=== PATIENT | male | born 1960 | race Caucasian/White ===

== ENCOUNTER 2023-07-19 12:09 | Emergency (ER) | payer MEDICARE, SELFPAY ==
[2023-07-19 12:26] VITALS: BP 126/75
[2023-07-19 13:11] LABS: % Basophils 0.7 % (0-2); % Eosinophils 1.9 % (0-6); % Immature Granulocytes 0.2 % (0-0.5); % Lymphocytes 15.3 % (20.5-51.1); % Monocytes 10.9 % (1.7-9.3); Absolute Eosinophils 0.1 10^3/uL (0-0.7); Absolute Lymphocytes 0.9 10^3/uL (1.2-3.4); Absolute Monocytes 0.6 10^3/uL (0.1-0.6); Absolute Neutrophils 4.1 10^3/uL (1.4-6.5); Hematocrit 42.8 % (39.0-52.0); Hemoglobin 14.7 g/dL (13.0-18.0); Mean Corp Hgb Conc. 34.3 g/dL (33.0-37.0); Mean Corpuscular Hgb 29.4 pg (27.0-31.0); Mean Corpuscular Volume 85.6 fL (80.0-94.0); Nucleated Red Blood Cells % 0 % (-); Red Cell Dist. Width 16.1 % (11.5-14.5); White Blood Cell Count 5.8 10^3/uL (4.8-10.8)
[2023-07-19 13:20] LABS: ALT (SGPT) 31 U/L (0-50); AST (SGOT) 41 U/L (17-59); Albumin 3.8 g/dl (3.5-5.0); Alkaline Phosphatase 101 U/L (38-126); Blood Urea Nitrogen 18 mg/dl (9-20); Calcium 9.8 mg/dl (8.4-10.2); Carbon Dioxide 24 mmol/L (22-30); Chloride 104 mmol/L (98-107); Glucose 121 mg/dl (70-99); Potassium 4.6 mmol/L (3.5-5.1); Sodium 133 mmol/L (135-145); Total Bilirubin 1.2 mg/dl (0.2-1.3); Total Protein 6.7 g/dl (6.3-8.2); eGFR > 60.00
[2023-07-19 13:32] LABS: Troponin I < 0.012 ng/ml
[2023-07-19 13:41] LABS: Mean Platelet Volume 11.7 fL (7.4-10.4); Platelet Count 124 10^3/uL (130-400)
--- NOTE | 2023-07-19 15:25 | ED.GENMED ---
History of Present Illness
General
Chief Complaint: Chest Pain
Source: patient
Exam Limitations: none
Time Seen by Provider: 07/19/23 14:21
Nursing documentation reviewed up to this point in time: agreed with
Travel History
Have you had any contact with someone who has COVID-19?: No
Do you have any symptoms of coronavirus? Fever > 100 degrees, chills, cough, shortness of breath, sore throat, loss of taste or smell, muscle aches, or headache?: No
History of Present Illness
History of Present Illness:
63-year-old male with past medical history of hypertension hyperlipidemia, NIDDM, hypothyroidism presenting to the emergency department today with concerns of chest pain after workout 2 days ago seem to improve and then had similar symptoms today
after walking the dog. Describes as a slight tightness and shortness of breath that does improve with rest. Claims that he has had upper respiratory syndrome over the past few months and was treated for pneumonia 2 weeks ago with amoxicillin with
some slight improvement after taking that. No fevers recently denies nausea vomiting. No diaphoresis. No history of blood clots no recent trauma surgery immobilization, history of blood clots or leg swelling
Review of Systems
Review of Systems
Allergies reviewed?: Yes
All Other Systems: ROS reviewed and negative except as documented in HPI and ROS
Phy Exam
Physical Exam
Physical Exam:
GENERAL: Alert , in no apparent distress
EYE: pupils equal and reactive
NECK: Supple, no significant adenopathy.
ENT: o/p clr, mmm.
CARDIAC: Regular rate and rhythm .
LUNGS: Crackles to the right lower lung clear breath sounds bilaterally, no acute respiratory distress, no wheezes
ABDOMEN: Soft, without focal tenderness, no r/g, no cvat
NEUROLOGICAL: Alert and oriented, no focal neuro deficits
SKIN: Warm and dry, skin intact.
MUSCULOSKELETAL: No edema, well perfused.
PSYCH: Normal and appropriate interaction.
Scores
Heart Score for Chest Pain Patients
STEMI patient?: No
History: Slightly or Non-Suspicious
ECG: Normal
Age: >/= 65 years
Risk Factors: 1 or 2 Risk Factors
Troponin: </= Normal Limit
Heart Score for Chest Pain Patients: 3
Heart Score Risk: 2.5% MACE over next 6 weeks
Course
Orders/Labs/Results
Orders:
Orders
07/19/23 12:11
Electrocardiogram (*1) Urgent
Reason for Study: Chest Pain
EKG- Treatment ONCE
07/19/23 12:39
Complete Blood Count/With Diff Urgent
Comprehensive Metabolic Panel Urgent
Troponin I Urgent
07/19/23 14:26
Chest [CR Chest - 2 Views ] Urgent
Comment:
Reason For Exam: cp
07/19/23 17:04
Doxycycline [Vibramycin] 100 mg PO NOW STA
07/19/23 17:05
Dexamethasone [Decadron] 10 mg PO NOW STA
Abnormal Lab Results
07/19/23
12:39
RDW 16.1 H %
(11.5-14.5)
Plt Count 124 L 10^3/uL
(130-400)
MPV 11.7 H fL
(7.4-10.4)
Absolute Lymphs (auto) 0.9 L 10^3/uL
(1.2-3.4)
Lymphocytes % 15.3 L %
(20.5-51.1)
Monocytes % 10.9 H %
(1.7-9.3)
Sodium 133 L mmol/L
(135-145)
Creatinine 0.6 L mg/dL
(0.7-1.3)
Glucose 121 H mg/dl
(70-99)
07/19/23 12:39
07/19/23 12:39
Vital Signs
Initial and Last Documented VS:
Initial Vital Signs
Temp Pulse Resp BP Pulse Ox
98.0 F 70 16 126/75 98
07/19/23 12:26 07/19/23 12:26 07/19/23 12:26 07/19/23 12:26 07/19/23 12:26
Last Documented Vital Signs
Temp Pulse Resp BP Pulse Ox
97.9 F 59 18 120/53 99
07/19/23 15:42 07/19/23 15:42 07/19/23 15:42 07/19/23 15:42 07/19/23 15:42
MDM/Problems Addressed
MDM/Problems Addressed:
63-year-old male presenting to the emergency department today with concerns of chest intermittently over the past 2 days worsened today after walking the dogs. Described as a tightness to the central chest [place] shortness of breath. Vital signs
normal upon arrival afebrile normal white count on low examination does have slight crackles to the right lower lung field.
Chest x-ray showing some increased consolidation to the right lower lobe but also some patchy infiltrates. Patient does not appear to be fluid overloaded I do not believe this is associate with edema radiology believes this could be fibrosis this
was explained to the patient but also treated for potential pneumonia and advised for close outpatient follow-up. Return precautions were given.
*Critical Care Note
Total Time (30-74mins, 75-104mins- exclusive of procedures): Not Applicable
ED Attending Note
-
Portions of this chart may have been created with voice recognition software.� Occasional wrong word or��sound alike� substitutions may have occurred due to the inherent limitations of voice recognition software.
Discharge Plan
Departure
Patient Disposition: Home (Routine Discharge)
Date of Disposition: 07/19/23
Time of Disposition: 17:07
Patient with high blood pressure during this ER visit?: No
Condition: Good
Covid-19: Not Applicable
Discharge Problem:
Chest pain
Instructions: Chest Pain PCP Follow Up
Prescriptions:
New
doxycycline hyclate 100 mg tablet
100 mg PO BID 7 Days Qty: 14 0RF
prednisone 20 mg tablet
40 mg PO DAILY 4 Days Qty: 8 0RF
Referrals:
Thomas Min MD [Family Provider] -
Activity Restrictions/Additional Instructions:
You came to the emergency department today with concerns of ongoing cough and some chest discomfort. Here you had an evaluation that showed some abnormality on your chest x-ray. Please take the steroid and antibiotic and follow close with the
primary care doctor for reassessment of this. Otherwise your cardiac workup appeared normal. Return to the emergency department any worsening, new or concerning symptoms.
Interventions
Interventions:
*ED COVID-19 Vaccine History Last Done: 07/19/23 12:26
[2023-07-19 15:42] VITALS: BP 120/53
[2023-07-19] MEDS: DECADRON 10 MG PO (17:13)
[2023-07-19] MEDS: VIBRAMYCIN 100 MG PO (17:14)
[2023-07-19 17:16] VITALS: BP 140/63
== END 2023-07-19 17:22 | disposition home or self-care (01) ==
LOC: EMR 12:09
PROVIDERS: EMERGENCY PHYSICIAN Emergency Medicine; FAMILY PHYSICIAN Family Medicine
DX: R07.89 Other chest pain (principal); I10 Essential (primary) hypertension; E78.5 Hyperlipidemia, unspecified; E03.9 Hypothyroidism, unspecified
CPT/HCPCS: 99285; 71046; 80053; 84484; 85025; 93005